=== PATIENT | female | born 2000 | race Caucasian/White ===

== ENCOUNTER 2020-10-08 02:00 | Emergency (ER) | payer BC ==
[~2020-10-08] VITALS: Ht 177.8 cm; Wt 68.2 kg
[2020-10-08 02:20] VITALS: TEMP 97.3
[2020-10-08 03:25] VITALS: BP 121/67; PULSE 66
== END 2020-10-08 03:25 | disposition home or self-care (01) ==
LOC: COL.ER 02:00
DX: F10.129 Alcohol abuse with intoxication, unspecified (principal); Y90.9 Presence of alcohol in blood, level not specified
CPT/HCPCS: J7030